=== PATIENT | female | born 1960 | race Caucasian/White ===

== ENCOUNTER → 2016-12-29 | Outpatient (REF) ==
--- NOTE | 2016-12-29 14:37 | REP ---
RIGHT KNEE, FIVE VIEWS: HISTORY: Degenerative joint disease. There is no acute fracture or dislocation. The joint spaces are normal in appearance. IMPRESSION: There is no acute fracture or dislocation. Signed by Scooby Candelario MD 12/29/2016 02:40 P
--- NOTE | 2016-12-29 14:54 | REP ---
CERVICAL SPINE, THREE VIEWS: HISTORY: Degenerative disc disease. There is no acute fracture or subluxation. The C4-5 and C5-6 intervertebral discs are decreased in height consistent with disc degeneration. Osteophytes are present on C3 and C4. IMPRESSION: Degenerative change as described above. Signed by Scooby Candelario MD 12/29/2016 03:13 P
== END ==
LOC: M SMT 13:09
PROVIDERS: ATTEND Internal Medicine
DX: M51.36 Other intervertebral disc degeneration, lumbar region (principal)